=== PATIENT | female | born 1985 | race Caucasian/White ===

== ENCOUNTER 2016-06-23 15:41 | Emergency (ER) | payer MEDICAID, OTHER ==
[2016-06-23 16:25] LABS: HCG,QUALITATIVE URINE NEGATIVE; PH,URINE 6.5 (5.0-8.0); URINE APPEARANCE CLEAR; URINE BILIRUBIN NEGATIVE (NEGATIVE); URINE BLOOD NEGATIVE (NEGATIVE); URINE COLOR YELLOW; URINE GLUCOSE (UA) NEGATIVE (NEGATIVE); URINE LEUKOCYTE ESTERASE NEGATIVE (NEGATIVE); URINE NITRITE NEGATIVE (NEGATIVE); URINE PROTEIN NEGATIVE (NEGATIVE); URINE UROBILINOGEN 1 mg/dL (0-1 mg/dl)
[2016-06-23 16:55] LABS: BASO % 0.4 % (0.2-1.0); EOS # 0.4 (0.0-0.5); EOS % 6.9 % (0.9-2.9); HEMOGLOBIN 17.3 gm/l (12.0-16.0); IMM NEUT% 0.2 % (0-1); LYMPH # 1.6 (1.0-4.8); LYMPH % 30.7 % (15-45); MEAN CELL VOLUME 98.3 fl (81.0-99.0); MEAN CORPUSCULAR HEMOGLOBIN 32.1 pg (27.0-31.0); MEAN CORPUSCULAR HGB CONC 32.6 g/dl (33.0-37.0); MEAN PLATELET VOLUME 11.1 fl (7.4-10.4); MONO # 0.3 (0.0-0.8); MONO % 5.5 % (4-12); NEUT % 56.3 % (43-75); PLATELET COUNT 258 K/mm3 (130-400); RED CELL DISTRIBUTION WIDTH 11.5 % (11.5-14.5)
--- NOTE | 2016-06-23 16:59 | CT ---
CT ABDOMEN AND PELVIS WITHOUT CONTRAST HISTORY: Left flank pain. TECHNIQUE: No intravenous contrast administered; contiguous axial images were acquired from the lung bases to the ischial tuberosities. Oral contrast was not administered. COMPARISON:None. FINDINGS: LUNG BASES: No gross airspace consolidation or pleural effusion. 2 mm pleurally based lesion of the right lower lobe, image 8. LIVER: No focal mass effect. SPLEEN: No focal mass effect. PANCREAS: No focal mass effect. ADRENAL GLANDS: No mass effect. KIDNEYS: Nonobstructive 2 mm calculus on the right. No collecting system dilatation. GALLBLADDER: Present. BOWEL: Evaluation somewhat limited by paucity of intra-abdominal fat. Moderate fecal loading. Limited assessment of the distal colon due to decompression. No abnormal small bowel dilatation. APPENDIX: Portions of a gas-filled appendix are suggested at the midline pelvis with high attenuation foci suggesting small appendicoliths PELVIC ORGANS: No gross mass effect. Decompression of the bladder. FREE FLUID: No gross free fluid identified. ABDOMINOPELVIC LYMPH NODES: No abnormally enlarged lymph nodes identified. ABDOMINAL AORTA: Normal caliber. OSSEOUS STRUCTURES: No grossly destructive lesions. IMPRESSION: 1. Nonobstructive 2 mm calculus on the right. No additional findings of urolithiasis. No evidence of upper urinary tract obstruction. 2. Nonobstructive appearance of bowel. Portions of the gas-filled appendix seen at the midline pelvis. 3. 2 mm right lower lobe pulmonary nodule, consider one-year follow-up CT if the patient has a smoking history or history of neoplasm.
[2016-06-23] MEDS ORDERED: KETOROLAC TROMETHAMINE 15 MG/ML VIAL ONE (17:05)
[2016-06-23] MEDS ORDERED: LACTATED RINGERS 1,000 ML ONE (17:06)
[2016-06-23] MEDS ORDERED: LORAZEPAM 2 MG/ML 1ML SDV ONE (17:06)
[2016-06-23 17:28] LABS: CALCIUM 9.3 mg/dL (8.6-10.3)
[2016-06-23] MEDS ORDERED: HYDROMORPHONE HCL 1 MG/ML SYRINGE ONE (18:09)
[2016-06-23] MEDS ORDERED: DIPHENHYDRAMINE HCL 50 MG/1 ML VIAL ONE (18:27)
== END 2016-06-23 18:53 | disposition home or self-care (01) ==
LOC: ED 15:41
DX: R10.9 Unspecified abdominal pain (principal); Z87.442 Personal history of urinary calculi
CPT/HCPCS: 81025; 85025; 80048; 81003; 74176; 96375 ×3; 99283 ×2; 96374; J2060; J1200; J1170; J1885; J7120